=== PATIENT | female | born 1955 | race Caucasian/White ===

== ENCOUNTER 2020-06-01 14:12 | Emergency (ER) | payer OTHER ==
[~2020-06-01] VITALS: Ht 165.1 cm; Wt 71.7 kg
[2020-06-01] MEDS ORDERED: ONDANSETRON 2MG/ML, 2ML ONE (14:44)
[2020-06-01] MEDS ORDERED: MORPHINE SULFATE 4 MG/ML, 1ML ONE (14:44)
[2020-06-01] MEDS ORDERED: SODIUM CHLORIDE 0.9% 1,000ML IVBOLUS ONE (15:00)
[2020-06-01] MEDS ORDERED: MORPHINE SULFATE 4 MG/ML, 1ML IVPush PRN (15:00)
[2020-06-01] MEDS ORDERED: ONDANSETRON 2MG/ML, 2ML IVPush ONE (15:00)
[2020-06-01 15:17] LABS: BASOPHILS % (AUTO) 1 % (0-1); EOSINOPHILS % (AUTO) 2 % (1-7); LYMPHOCYTES % (AUTO) 12 % (22-44); MEAN PLATELET VOLUME 10.7 fL (7.4-10.4); MONOCYTES % (AUTO) 5 % (2-9); NEUTROPHILS % (AUTO) 81 % (42-75); PLATELET COUNT 212 x10^3/uL (130-400); RED BLOOD COUNT 5.18 x10^6/uL (3.82-5.3); RED CELL DISTRIBUTION WIDTH 13.2 % (9.6-15.2)
[2020-06-01] MEDS ORDERED: DIPH1TAB PO (15:20)
[2020-06-01] MEDS ORDERED: BUDE3CAP15 PO (15:20)
[2020-06-01] MEDS ORDERED: probiotic PO (15:20)
[2020-06-01] MEDS ORDERED: LEVO75TA PO (15:20)
[2020-06-01] MEDS ORDERED: PARO30TA45 PO (15:20)
[2020-06-01] MEDS ORDERED: MESA1.2T PO (15:20)
[2020-06-01 15:21] LABS: ALBUMIN 3.6 g/dL (3.4-5.0); ANION GAP 5 mmol/L (5-15); CALCIUM 9.1 mg/dL (8.5-10.1); CHLORIDE 110 mmol/L (98-107); MD NO
--- NOTE | 2020-06-01 15:24 | NUR ---
pt presents to ED with c/o right upper and lower abd pain, tenderness, and diarrhea x 2 weeks. pt states she has hx ulcerative colitis. pt is a&ox 4, resps even and unlabored. no n/v. bp and spo2 monitors in place. call light in reach. piv placed, pt medicated per emar. after morphine admin, pt's pain went from 5/10 to 3/10. pt maintaining spo2 95% on room air. pt to have CT once labwork is resulted. pt updated with POC, agreeable. blanket provided, call light in reach. report given to KARLEE Morilol who is assuming care.
--- NOTE | 2020-06-01 15:24 | NUR ---
REPORT FROM KARLEE BAKER. PT RESTING IN [facility] NOTED.
[2020-06-01 15:25] LABS: ALANINE AMINOTRANSFERASE 17 U/L (12-78); ALKALINE PHOSPHATASE 43 U/L (45-117); BILIRUBIN,TOTAL 0.7 mg/dL (0.2-1.0); CREATININE 0.85 mg/dL (0.55-1.02); TOTAL PROTEIN 7.3 g/dL (6.4-8.2)
[2020-06-01 15:34] LABS: MICROSCOPIC INDICATED
[2020-06-01] MEDS ORDERED: OMNIPAQUE 350 MG/ML, 100ML BOTTLE ONE (15:47)
[2020-06-01 16:15] VITALS: BP 116/50
--- NOTE | 2020-06-01 16:20 | NUR ---
PT REPORTS IMPROVED PAIN WITH MEDICATIONS. CHART UP FOR RECHECK
--- NOTE | 2020-06-01 17:05 | NUR ---
DC EDUCATION PROVIDED, PT DEMONSTRATES UNDERSTANDING. PT AMBULATED STEADILY TO DC WITH RN AND FAMILY MEMBER. FAMILY TO TRANSPORT PT HOME.
== END 2020-06-01 17:07 | disposition home or self-care (01) ==
LOC: ED 14:42
DX: K51.90 Ulcerative colitis, unspecified, without complications (principal); E03.9 Hypothyroidism, unspecified; Z90.49 Acquired absence of other specified parts of digestive tract; Z90.710 Acquired absence of both cervix and uterus
CPT/HCPCS: 36415; 74177; 80053; 81001; 85025; 87086; 96374; 96375; 99285; J2270; J2405; Q9967